=== PATIENT | female | born 1935 | race Caucasian/White ===

== ENCOUNTER 2019-01-28 15:26 | Emergency (ER) | payer MEDICARE, BC ==
[2019-01-28 15:46] VITALS: BMI 25.2
[2019-01-28 15:47] VITALS: RESP 18
--- NOTE | 2019-01-28 16:58 | ED PDOC ---
Arrival/HPI - General Chief Complaint: Abnormal Labs Historian: Patient - History of Present Illness Narrative History of Present Illness (Text): 01/28/19 16:59 83 y/o female with past medical history of cholecystectomy, hyperlipidemia, and hypertension, was referred to the emergency department by Dr. Bear due to an abnormal EKG at the office today. Patient states visiting Dr. Bear for evaluation of subjective fever and high blood pressure today. Patient denies any other associated somatic complaints. Patient denies any chills, chest pain, shortness of breath, abdominal pain, nausea, vomiting, diarrhea, back pain, neck pain, urinary symptoms, headache, dizziness, changes in bowel movement or any other complaints. Time/Duration: 24 hours Symptom Onset: Gradual Symptom Course: Unchanged Context: Other (Referred by Dr. Bear) Past Medical History - Provider Review Nursing Documentation Reviewed: Yes - Infectious Disease Hx of Infectious Diseases: None - Cardiac Hx Cardiac Disorders: Yes Hx Hypertension: Yes - Pulmonary Hx Respiratory Disorders: No - Neurological Hx Neurological Disorder: No - HEENT Hx HEENT Disorder: No - Renal Hx Renal Disorder: No - Endocrine/Metabolic Hx Endocrine Disorders: No - Hematological/Oncological Hx Blood Disorders: No - Integumentary Hx Dermatological Disorder: No - Musculoskeletal/Rheumatological Hx Musculoskeletal Disorders: No - Gastrointestinal Hx Gastrointestinal Disorders: Yes Hx Irritable Bowel: Yes - Genitourinary/Gynecological Hx Genitourinary Disorders: No - Psychiatric Hx Psychophysiologic Disorder: No Hx Substance Use: No - Surgical History Hx Cholecystectomy: Yes Family/Social History - Physician Review Nursing Documentation Reviewed: Yes Family/Social History: Unknown Family HX Smoking Status: Never Smoked Hx Alcohol Use: No Hx Substance Use: No Hx Substance Use Treatment: No Allergies/Home Meds Allergies/Adverse Reactions: Allergies No Known Allergies Allergy (Verified 01/28/19 15:46) Home Medications: Home Meds Medication Instructions Recorded Confirmed Aspirin [[facility] Aspirin [facility]'s] 81 mg PO DAILY 11/25/13 11/25/13 Atenolol 50 mg PO DAILY 11/25/13 11/25/13 Esomeprazole Magnesium [Nexium] 40 mg PO DAILY 11/25/13 11/25/13 Lorazepam 1 mg PO DAILY 11/25/13 11/25/13 Losartan [Cozaar] 100 mg PO DAILY 11/25/13 11/25/13 Simvastatin 20 mg PO DAILY 11/25/13 11/25/13 Review of Systems - Physician Review All systems were reviewed & negative as marked: Yes - Review of Systems Constitutional: Fevers (subjective fever) Eyes: absent: Vision Changes ENT: absent: Hearing Changes Respiratory: absent: SOB, Cough Cardiovascular: absent: Chest Pain, Palpitations Gastrointestinal: absent: Abdominal Pain, Stool Changes Skin: absent: Rash, Skin Lesions Neurological: absent: Headache, Dizziness Psychiatric: absent: Anxiety, Depression, Suicidal Ideation Physical Exam Vital Signs Reviewed: Yes Vital Signs Temp Pulse Resp BP Pulse Ox 01/28/19 15:47 100.5 F H 103 H 18 175/81 H 95 Temperature: Febrile Blood Pressure: Hypertensive Pulse: Tachycardic Respiratory Rate: Normal Appearance: Positive for: Well-Appearing Pain Distress: None Mental Status: Positive for: Alert and Oriented X 3 - Systems Exam Head: Present: Atraumatic, Normocephalic Pupils: Present: PERRL Extroacular Muscles: Present: EOMI Conjunctiva: Present: Normal Mouth: Present: Moist Mucous Membranes Neck: Present: Normal Range of Motion Respiratory/Chest: Present: Clear to Auscultation (Breath sounds clear bilaterally ), Good Air Exchange. No: Respiratory Distress, Accessory Muscle Use Cardiovascular: Present: Tachycardic. No: Murmurs Abdomen: Present: Distention. No: Tenderness, Peritoneal Signs, Rebound, Guarding Back: Present: Normal Inspection Upper Extremity: Present: Normal Inspection. No: Cyanosis, Edema Lower Extremity: Present: Normal Inspection. No: Edema Neurological: Present: GCS=15, Speech Normal Skin: Present: Warm, Dry, Normal Color. No: Rashes Psychiatric: Present: Alert, Oriented x 3, Normal Insight, Normal Concentration Medical Decision Making ED Course and Treatment: 01/28/19 17:20 Impression: 83 y/o female who presents to the emergency department for evaluation of fever and elevated blood pressure. Differential Diagnosis included but are not limited to: --Hypertensive Urgency --Arrythmia --Diverticulitis --Colitis Plan: -- Labs -- CT scan -- EKG -- Chest X-Ray -- IVF --Ciprofloxacin --Flagyl -- Influenza A B stat -- Reassess and disposition Prior Visits: Notes and results from previous visits were reviewed. Progress Notes: 01/28/19 17:30 Labs reviewed with no evidence of leukocytosis. Patient noted to persistently be tachycardic, but reports she is anxious about staying in the hospital. CT a/p shows evidence of diverticulitis. PO Flagyl and ciprofloxacin ordered. Call placed to Dr. Bear(PCP) service. 01/28/19 21:[address] Bear's SEISMIC COMPUTER who agrees with plan for discharge and will arrange for outpatient follow up with cardiology. Patient understands she must take medications as prescribed and will follow up. She is accompanied by her son and given return protocol. She is stable for discharge. - Lab Interpretations Lab Results: 01/28/19 17:45 01/28/19 17:45 Lab Results 01/28/19 18:07: Influenza Typ A,B (EIA) Negative for flu a/b 01/28/19 18:00: pO2 28 L, VBG pH 7.41, VBG pCO2 45.0, VBG HCO3 28.5 H, VBG Total CO2 29.9 H, VBG O2 Sat (Calc) 64.9, VBG Base Excess 3.2 H, VBG Potassium 4.6, Glucose 104, Lactate 1.7, FiO2 21.0, Sodium 139.0, Chloride 107.0, Venous Blood Potassium 4.6 01/28/19 17:45: Sodium 139, Potassium 4.4, Chloride 103, Carbon Dioxide 27, Ani [place] 14, BUN 19, Creatinine 1.0, Est GFR ( Amer) > 60, Est GFR (Non-Af Amer) 53, Random Glucose 103, Calcium 9.7, Magnesium 1.9, Total Bilirubin 0.5, AST 24, ALT 10, Alkaline Phosphatase 128 H D, Total Protein 8.2, Albumin 4.3, Globulin 3.9, Albumin/Globulin Ratio 1.1, Lipase 33 01/28/19 17:45: WBC 10.9, RBC 4.00, Hgb 11.7 L, Hct 35.9 L, MCV 89.8, MCH 29.3, MCHC 32.6, RDW 13.9, Plt Count 241, MPV 11.5 H, Neut % (Auto) 73.9 H, Lymph % (Auto) 16.9 L, [place] % (Auto) 8.5 H, Eos % (Auto) 0.5 L, Baso % (Auto) 0.2, Lymph # (Auto) 1.9, [place] # (Auto) 0.9 H, Eos # (Auto) 0.1, Baso # (Auto) 0.02, Absolute Neuts (auto) 8.08 H I have reviewed the lab results: Yes - RAD Interpretation Narrative RAD Interpretations (Text): 01/28/19 20:45 CT Abdomen and Pelvis with IV contrast CLINICAL HISTORY: Pain TECHNIQUE: Axial computed tomography images of the abdomen and pelvis with intravenous contrast. 352.95 mGy-cm CONTRAST: With; omni 350 100 nl COMPARISON: None provided. FINDINGS: LUNG BASES: Bibasilar interstitial pulmonary fibrosis is noted; more pronounced on the left. The lung bases appear clear. No pleural effusions are seen. LIVER: Unremarkable. GALLBLADDER AND BILE DUCTS: The gallbladder was not identified. No radioopaque gallstones are seen. No biliary ductal dilatation is evident. PANCREAS: Unremarkable. SPLEEN: Unremarkable. ADRENAL GLANDS: Unremarkable. KIDNEYS, URETERS, AND BLADDER: The kidneys appear within normal limits. There is no hydronephrosis or hydroureter. No urinary calculi are seen. The urinary bladder is normal in size and configuration. STOMACH AND BOWEL: A small hiatal hernia is identified. No evidence of bowel obstruction. Diverticulosis coli is noted in the descending, sigmoid colon. Additionally, there is mucosal wall thickening and subtle pericolonic haziness in the proximal sigmoid compatible with acute diverticulitis. No pericolonic abscess formation or microperforation identified. APPENDIX: No evidence of acute appendicitis on CT examination. PERITONEUM: No free fluid. No free air. LYMPH NODES: No lymphadenopathy is evident. REPRODUCTIVE: Unremarkable as visualized. VASCULATURE: No evidence of abdominal aortic aneurysm. Moderate atherosclerotic vascular plaquing noted. BONES: No aggressive appearing osseous lesion. No acute osseous pathology evident. There is evidence of degenerative disc disease at T12-L1, L1-2, L3-4, L5-S1. IMPRESSION: Acute sigmoid diverticulitis without abscess or free air. Radiology Orders: 01/28/19 16:23 CHEST PORTABLE [RAD] Stat 01/28/19 16:57 ABDOMEN & PELVIS [ABD & PELVIS IV CONTRAST ONLY] [CT] Stat Director Of Cardiology: Radiologist - EKG Interpretation EKG Interpretation (Text): 01/28/19 16:02 EKG reviewed, sinus tachycardia at 102, LAE, No ST elevations. Interpreted by ED Physician: Yes Type: 12 lead EKG - Medication Orders Current Medication Orders: 01/28/19 21:36 Discontinued Medications Acetaminophen (Tylenol 325mg Tab) 975 mg PO STAT STA Stop: 01/28/19 20:15 Last Admin: 01/28/19 20:44 Dose: 975 mg MAR Pain/Vitals Document 01/28/19 20:44 IT (Rec: 01/28/19 20:44 IT [id number]) Pain Reassessment Is This A Pain ReAssessment? No Sleep Is patient sleeping during reassessment? No Presence of Pain Presence of Pain Yes Ciprofloxacin (Cipro) 500 mg PO ONCE STA; Protocol Stop: 01/28/19 21:13 Last Admin: 01/28/19 21:34 Dose: 500 mg Sodium Chloride (Sodium Chloride 0.9%) 1,000 mls @ 999 mls/hr IV .Q1H1M STA Stop: 01/28/19 18:11 Last Admin: 01/28/19 18:06 Dose: 999 mls/hr eMAR Start Stop Document 01/28/19 18:06 CD (Rec: 01/28/19 18:07 CD [id number]) Intravenous Solution Start Date 01/28/19 Start Time 18:07 End Date 01/28/19 End time 19:08 Total Infusion Time 61 Sodium Chloride (Sodium Chloride 0.9%) 1,000 mls @ 999 mls/hr IV .Q1H1M STA Stop: 01/28/19 20:34 Last Admin: 01/28/19 20:44 Dose: 999 mls/hr eMAR Start Stop Document 01/28/19 20:44 IT (Rec: 01/28/19 20:44 IT [id number]) Intravenous Solution Start Date 01/28/19 Start Time 20:44 Metronidazole (Flagyl) 500 mg PO STAT STA; Protocol Stop: 01/28/19 21:13 Last Admin: 01/28/19 21:34 Dose: 500 mg - Lobo Statement The provider has reviewed the documentation as recorded by the Lobo Crowley training with Didi All medical record entries made by the Lobo were at my direction and personally dictated by me. I have reviewed the chart and agree that the record accurately reflects my personal performance of the history, physical exam, medical decision making, and the department course for this patient. I have also personally directed, reviewed, and agree with the discharge instructions and disposition. Disposition/Present on Arrival - Present on Arrival Any Indicators Present on Arrival: No History of DVT/PE: No History of Uncontrolled Diabetes: No Urinary Catheter: No History of Decub. Ulcer: No History Surgical Site Infection Following: None - Disposition Have Diagnosis and Disposition been Completed?: Yes Diagnosis: Diverticulitis Disposition: HOME/ ROUTINE Disposition Time: 21:36 Patient Plan: Discharge Condition: STABLE Discharge Instructions (ExitCare): Diverticulitis (DC) Print Language: LEBANESE Additional Instructions: All medical record entries made by the Scribe were at my direction and pers onally dictated by me. I have reviewed the chart and agree that the record accurately reflects my personal performance of the history, physical exam, medical decision making, and the department course for this patient. I have also personally directed, reviewed, and agree with the discharge instructions and disposition. Please follow up with Dr. Bear in 1 week Prescriptions: Ciprofloxacin [Cipro] 500 mg PO BID 10 Days #20 tab Metronidazole [Flagyl] 500 mg PO DAILY 10 Days #10 tablet Referrals: Duke Bear MD [Family Provider] - Follow up with primary Forms: [employer] (German)
[2019-01-28] MEDS ORDERED: Sodium Chloride 0.9% 1,000 ML IV STA ×2 (17:11→19:34)
--- NOTE | 2019-01-28 18:00 | RAD ---
Date of service: 01/28/2019 HISTORY: fever COMPARISON: 11/25/2013. FINDINGS: LUNGS: The lungs are well inflated and clear. There is moderate pulmonary venous congestion. No focal consolidation. PLEURA: No pleural effusions or pneumothorax. CARDIOVASCULAR: The heart is normal in size. No aortic atherosclerotic calcifications present. OSSEOUS STRUCTURES: Within normal limits for the patient's age. VISUALIZED UPPER ABDOMEN: Normal. OTHER FINDINGS: None. IMPRESSION: No active pulmonary disease.
[2019-01-28] MEDS ORDERED: Iohexol 350 MG/100 ML VIAL ONE (18:06)
[2019-01-28 18:10] LABS: VENOUS BLOOD GAS BASE EXCESS 3.2 mmol/L (0.0-2.0); VENOUS BLOOD GAS PO2 28 mm/Hg (30-55); VENOUS BLOOD PH 7.41 (7.32-7.43)
[2019-01-28 18:17] LABS: ALB/GLOB RATIO 1.1 (1.1-1.8); ALBUMIN 4.3 g/dL (3.0-4.8); ALT/SGPT 10 U/L (7-56); AST/SGOT 24 U/L (14-36); BLOOD UREA NITROGEN 19 mg/dL (7-21); CALCIUM 9.7 mg/dL (8.4-10.5); GFR NON-AFRICAN AMERICAN 53; LIPASE 33 U/L (23-300)
[2019-01-28 18:30] LABS: BASO # 0.02 K/mm3 (0.0-2.0); BASO % 0.2 % (0.0-3.0); EOS # 0.1 (0.0-0.7); EOS % 0.5 % (1.5-5.0); HEMOGLOBIN 11.7 g/dL (12.0-16.0); LYMPH # 1.9 (1.2-3.4); LYMPH % 16.9 % (22.0-35.0); MEAN CELL VOLUME 89.8 fl (80.0-105.0); MEAN CORPUSCULAR HEMOGLOBIN 29.3 pg (25.0-35.0); MEAN CORPUSCULAR HGB CONC 32.6 g/dl (31.0-37.0); MEAN PLATELET VOLUME 11.5 fl (7.0-11.0); MONO # 0.9 (0.1-0.6); MONO % 8.5 % (1.0-6.0); RED CELL DISTRIBUTION WIDTH 13.9 % (11.5-14.5); WHITE BLOOD COUNT 10.9 10^3/uL (4.5-11.0)
--- NOTE | 2019-01-28 21:45 | CARD ---
APPROVED REPORT Date of service: 01/28/2019 EKG Measurement Heart [id number] <Conclusion> Sinus tachycardia Possible Left atrial enlargement Left ventricular hypertrophy Possible inferior infarct, age undetermined NDSTT abnormalities CCR Abnormal ECG
[2019-01-28 22:21] VITALS: BP 128/61; PULSE 88; TEMP 98; O2SAT 96
--- NOTE | 2019-01-29 08:43 | CT ---
Date of service: 01/28/2019 PROCEDURE: CT Abdomen and Pelvis with contrast HISTORY: abdominal pain COMPARISON: None. TECHNIQUE: Contrast dose: Radiation dose: Total exam DLP = 352.95 mGy-cm. This CT exam was performed using one or more of the following dose reduction techniques: Automated exposure control, adjustment of the mA and/or kV according to patient size, and/or use of iterative reconstruction technique. FINDINGS: LOWER THORAX: Bibasilar interstitial fibrotic change. LIVER: Unremarkable. No gross lesion or ductal dilatation. GALLBLADDER AND BILE DUCTS: Cholecystectomy. PANCREAS: Unremarkable. No gross lesion or ductal dilatation. SPLEEN: Unremarkable. ADRENALS: Unremarkable. No mass. KIDNEYS AND URETERS: Unremarkable. No hydronephrosis. No solid mass. VASCULATURE: Unremarkable. No aortic aneurysm. No aortic atherosclerotic calcification or mural plaque present. BOWEL: Left-sided colonic diverticulosis with acute sigmoid diverticulitis. No abscess or pneumoperitoneum. APPENDIX: Normal appendix. PERITONEUM: Unremarkable. No free fluid. No free air. LYMPH NODES: Unremarkable. No enlarged lymph nodes. BLADDER: Unremarkable. REPRODUCTIVE: Unremarkable. BONES: No acute fracture. OTHER FINDINGS: None. IMPRESSION: Left-sided colonic diverticulosis with acute sigmoid diverticulitis. No abscess or pneumoperitoneum.
== END 2019-01-28 21:54 | disposition home or self-care (01) ==
LOC: ED 15:26
DX: K57.92 Diverticulitis of intestine, part unspecified, without perforation or abscess without bleeding (principal); I10 Essential (primary) hypertension; E78.5 Hyperlipidemia, unspecified; Z90.49 Acquired absence of other specified parts of digestive tract
CPT/HCPCS: 71045; 74177; 80053; 82803; 83690; 83735; 85025; 87040; 87086; 87804; 93005; 96360; 99282; J7030; Q9967

== ENCOUNTER 2019-03-24 06:15 | Emergency (ER) | payer MEDICARE, BC ==
[2019-03-24 06:29] VITALS: BMI 26.9
[2019-03-24 06:30] VITALS: RESP 18; TEMP 97.7; O2SAT 98
[2019-03-24] MEDS ORDERED: guaiFENesin DM 200 mg-20 mg/10 ml UD PO STA (07:18)
--- NOTE | 2019-03-24 07:22 | ED PDOC ---
Arrival/HPI - General Chief Complaint: Cough, Cold, Congestion Time Seen by Provider: 03/24/19 07:02 Historian: Patient - History of Present Illness Narrative History of Present Illness (Text): 03/24/19 07:19 84 year old female, with a past medical history of hypertension, who presents to the emergency department complaining of congestion x 2 weeks. Patient endorses a dry cough and seasonal allergies. Patient reports she has been waking up covered in sweat for the past 3 days. She denies any sore throat, fever, difficulty breathing, nausea, vomiting, chest pain, or any other complaints. Patient denies any use of antibiotics or inhaler. PMD: Dr. Bear Time/Duration: > week Symptom Onset: Gradual Symptom Course: Unchanged Activities at Onset: Light Context: Home Past Medical History - Provider Review Nursing Documentation Reviewed: Yes - Infectious Disease Hx of Infectious Diseases: None - Cardiac Hx Cardiac Disorders: Yes Hx Hypertension: Yes - Pulmonary Hx Respiratory Disorders: No - Neurological Hx Neurological Disorder: No - HEENT Hx HEENT Disorder: No - Renal Hx Renal Disorder: No - Endocrine/Metabolic Hx Endocrine Disorders: No - Hematological/Oncological Hx Blood Disorders: No - Integumentary Hx Dermatological Disorder: No - Musculoskeletal/Rheumatological Hx Musculoskeletal Disorders: No - Gastrointestinal Hx Gastrointestinal Disorders: Yes Hx Irritable Bowel: Yes - Genitourinary/Gynecological Hx Genitourinary Disorders: No - Psychiatric Hx Psychophysiologic Disorder: No Hx Substance Use: No - Surgical History Hx Cholecystectomy: Yes - Anesthesia Hx Anesthesia: Yes Hx Anesthesia Reactions: No Hx Malignant Hyperthermia: No Family/Social History - Physician Review Nursing Documentation Reviewed: Yes Family/Social History: Unknown Family HX Smoking Status: Never Smoked Hx Alcohol Use: No Hx Substance Use: No Hx Substance Use Treatment: No Allergies/Home Meds Allergies/Adverse Reactions: Allergies No Known Allergies Allergy (Verified 01/28/19 15:46) Home Medications: Home Meds Medication Instructions Recorded Confirmed Aspirin [[facility] Aspirin Children's] 81 mg PO DAILY 11/25/13 03/24/19 Esomeprazole Magnesium [Nexium] 40 mg PO DAILY 11/25/13 03/24/19 Lorazepam 1 mg PO DAILY 11/25/13 03/24/19 Simvastatin 20 mg PO DAILY 11/25/13 03/24/19 Metoprolol Tartrate [Lopressor] 50 mg PO DAILY 03/24/19 03/24/19 Olmesartan Medoxomil [Benicar] 20 mg PO DAILY 03/24/19 03/24/19 Review of Systems - Physician Review All systems were reviewed & negative as marked: Yes - Review of Systems Constitutional: absent: Fevers ENT: absent: Sore Throat Respiratory: Cough. absent: SOB Cardiovascular: absent: Chest Pain Gastrointestinal: absent: Nausea, Vomiting Musculoskeletal: absent: Back Pain, Neck Pain Neurological: absent: Headache, Dizziness Physical Exam Vital Signs Reviewed: Yes Vital Signs Temp Pulse Resp BP Pulse Ox 03/24/19 06:29 97.7 F 74 18 158/85 H 98 Temperature: Afebrile Blood Pressure: Normal Pulse: Regular Respiratory Rate: Normal Appearance: Positive for: Well-Appearing, Non-Toxic, Comfortable Pain Distress: None Mental Status: Positive for: Alert and Oriented X 3 - Systems Exam Head: Present: Atraumatic, Normocephalic Pupils: Present: PERRL Extroacular Muscles: Present: EOMI Conjunctiva: Present: Normal Mouth: Present: Moist Mucous Membranes Neck: Present: Normal Range of Motion Respiratory/Chest: Present: Clear to Auscultation, Good Air Exchange. No: Respiratory Distress, Accessory Muscle Use Cardiovascular: Present: Regular Rate and Rhythm, Normal S1, S2. No: Murmurs Abdomen: No: Tenderness, Distention, Peritoneal Signs Back: Present: Normal Inspection Upper Extremity: Present: Normal Inspection. No: Cyanosis, Edema Lower Extremity: Present: Normal Inspection. No: Edema Neurological: Present: GCS=15, CN II-XII Intact, Speech Normal Skin: Present: Warm, Dry, Normal Color. No: Rashes Psychiatric: Present: Alert, Oriented x 3, Normal Insight, Normal Concentration Medical Decision Making ED Course and Treatment: 03/24/19 07:16 Impression: 84 year old female presents to the ED complaining of congestion x 2 weeks Differential Diagnosis included but are not limited to: Cough r/o pneumonia Plan: -- Robitussin -- Labs -- Chest X-ray -- Iv fluids -- Reassess and disposition Prior Visits: Notes and results from previous visits were reviewed. Progress Notes: Accession No. : [id number] Patient Name / ID : LANI BARCENAS / [id number] Chest Xray IMPRESSION: No active disease. 03/24/19 9:40 Patient feels beter. CXR negative. She is not having chest pain or shortness of breathe. She will follow up with her primary care doctor and was advised to return to the ED if symptoms worsen or any other concerns. - RAD Interpretation Narrative RAD Interpretations (Text): 03/24/19 09:39 Chest X-ray reviewed by radiologist, shows: No active disease. Golf Club Repairer: Radiologist - Lorenzoibsuni Statement The provider has reviewed the documentation as recorded by the Lorenzoibsuni Lund All medical record entries made by the Lorenzoibsuni were at my direction and personally dictated by me. I have reviewed the chart and agree that the record accurately reflects my personal performance of the history, physical exam, medical decision making, and the department course for this patient. I have also personally directed, reviewed, and agree with the discharge instructions and disposition. Disposition/Present on Arrival - Present on Arrival Any Indicators Present on Arrival: No History of DVT/PE: No History of Uncontrolled Diabetes: No Urinary Catheter: No History of Decub. Ulcer: No History Surgical Site Infection Following: None - Disposition Have Diagnosis and Disposition been Completed?: Yes Diagnosis: URI (upper respiratory infection) Disposition: HOME/ ROUTINE Disposition Time: 09:40 Patient Plan: Discharge Condition: IMPROVED Discharge Instructions (ExitCare): Viral Upper Respiratory Infection, Adult (DC) Additional Instructions: SWAPNA GARIBAY, thank you for letting us take care of you today. Your provider was Anthony Arroyo DO and you were treated for Upper Respiratory Tract Infection. The emergency medical care you received today was directed at your acute symptoms. If you were prescribed any medication, please fill it and take as directed. It may take several days for your symptoms to resolve. Return to the Emergency Department if your symptoms worsen, do not improve, or if you have any other problems. Please contact your doctor or call one of the physicians/clinics you have been referred to that are listed on the Patient Visit Information form that is incl uded in your discharge packet. Bring any paperwork you were given at discharge with you along with any medications you are taking to your follow up visit. Our treatment cannot replace ongoing medical care by a primary care provider outside of the emergency department. Thank you for allowing the [facility] team to be part of your care today. If you had an X-Ray or CT scan: A Radiologist will review the ED reading if any change in treatment is needed we will contact you. If you had a blood, urine, or wound culture: It will take several days for the results, if any change in treatment is needed we will contact you. If you had an STI test: It will take 48 hours for the results. Please call after 1 week if you have not heard back. Prescriptions: guaiFENesin/Dextromethorphan [guaiFENesin-DM] 10 ml PO Q4 #1 Forms: [employer] (Montenegrin)
[2019-03-24 08:08] LABS: BASO # 0.03 K/mm3 (0.0-2.0); BASO % 0.4 % (0.0-3.0); EOS # 0.1 (0.0-0.7); EOS % 1.4 % (1.5-5.0); HEMOGLOBIN 12.6 g/dL (12.0-16.0); LYMPH # 1.9 (1.2-3.4); LYMPH % 22.4 % (22.0-35.0); MEAN CELL VOLUME 89.5 fl (80.0-105.0); MEAN CORPUSCULAR HEMOGLOBIN 29.4 pg (25.0-35.0); MEAN CORPUSCULAR HGB CONC 32.8 g/dl (31.0-37.0); MEAN PLATELET VOLUME 10.7 fl (7.0-11.0); MONO # 0.8 (0.1-0.6); MONO % 9.7 % (1.0-6.0); RBC 4.29 10^6/uL (3.5-6.1); RED CELL DISTRIBUTION WIDTH 14.7 % (11.5-14.5); WHITE BLOOD COUNT 8.4 10^3/uL (4.5-11.0)
[2019-03-24 08:17] LABS: ALB/GLOB RATIO 1.1 (1.1-1.8); ALBUMIN 4.7 g/dL (3.0-4.8); CALCIUM 9.7 mg/dL (8.4-10.5)
[2019-03-24 08:45] VITALS: BP 126/83
--- NOTE | 2019-03-24 09:33 | RAD ---
Date of service: 03/24/2019 HISTORY: cough r/o pna COMPARISON: No prior. TECHNIQUE: Chest PA and lateral views FINDINGS: LUNGS: No active pulmonary disease. PLEURA: No significant pleural effusion identified. No pneumothorax apparent. CARDIOVASCULAR: No aortic atherosclerotic calcification present. Normal cardiac size. No pulmonary vascular congestion. OSSEOUS STRUCTURES: No significant abnormalities. VISUALIZED UPPER ABDOMEN: Normal. OTHER FINDINGS: None. IMPRESSION: No active disease.
[2019-03-24 09:42] VITALS: PULSE 62
== END 2019-03-24 09:48 | disposition home or self-care (01) ==
LOC: ED 06:15
DX: J06.9 Acute upper respiratory infection, unspecified (principal); I10 Essential (primary) hypertension